=== PATIENT | female | born 1945 | race Caucasian/White ===

== ENCOUNTER 2025-02-14 12:26 | Emergency (ER) | payer MEDICARE, BC ==
[~2025-02-14] VITALS: Ht 160 cm; Wt 68.0 kg
[2025-02-14] MEDS ORDERED: ONDANSETRON HCL/PF 4 MG/2 ML VIAL ONE ×2 (12:56→14:57)
[2025-02-14] MEDS ORDERED: MAG HYDROX/AL HYDROX/SIMETH 30 ML UDC ONE (12:56)
[2025-02-14] MEDS ORDERED: LIDOCAINE VISCOUS 2% UD 15 ML UDC ONE (12:57)
[2025-02-14] MEDS ORDERED: FAMOTIDINE/PF INJ 20 MG/2 ML VIAL IV ONE (12:57)
[2025-02-14] MEDS: IV NS 0.9% 500 ML BAG IV ONE (13:00)
[2025-02-14] MEDS: MAG HYDROX/AL HYDROX/SIMETH 30 ML UDC PO ONE (13:00)
[2025-02-14] MEDS: LIDOCAINE VISCOUS 2% UD 15 ML UDC MM ONE (13:00)
[2025-02-14] MEDS: FAMOTIDINE/PF INJ 20 MG/2 ML VIAL IV ONE (13:00)
[2025-02-14] MEDS: ONDANSETRON HCL/PF 4 MG/2 ML VIAL IVP ONE (13:00)
[2025-02-14 13:01] LABS: BASOPHILS % (AUTO) 0.5 % (0.0-2.0); EOSINOPHILS % (AUTO) 0.1 % (0.0-6.0); HEMATOCRIT 39 % (33-45); HEMOGLOBIN 13.1 g/dL (11.5-14.8); LYMPHOCYTES # (AUTO) 1.1 K/uL (0.8-4.8); LYMPHOCYTES % (AUTO) 12.5 % (20.0-44.0); MEAN CORPUSCULAR HEMOGLOBIN 32 PG (26.0-33.0); MEAN CORPUSCULAR HGB CONC 34 g/dl (31.0-36.0); MEAN CORPUSCULAR VOLUME 93 fL (82-100); MONOCYTES # (AUTO) 0.4 K/uL (0.1-1.30); MONOCYTES % (AUTO) 4.9 % (2.0-12.0); NEUTROPHILS # (AUTO) 7.2 K/uL (1.8-8.9); PLATELET COUNT (AUTO) 185 K/uL (150-450); RED BLOOD CELL COUNT(AUTO) 4.15 MIL/uL (4.0-5.2); RED CELL DISTRIBUTION WIDTH 13.8 % (11.5-15.0); WHITE BLOOD COUNT (AUTO) 8.7 K/uL (4.3-11.0)
[2025-02-14 13:23] LABS: CALCIUM, SERUM 10.1 mg/dL (8.5-10.1); CARBON DIOXIDE 26 mmol/L (21-32); CHLORIDE 101 mmol/L (98-107); GLUCOSE 155 mg/dL (74-106); POTASSIUM 3.2 mmol/L (3.5-5.1); SODIUM SERUM 139 mmol/L (136-145); UREA NITROGEN, BLOOD 19 mg/dL (7-18)
[2025-02-14 13:30] LABS: ALANINE AMINOTRANSFERASE 23 U/L (12-78); ALBUMIN 4.3 g/dL (3.4-5.0); ALKALINE PHOSPHATASE 54 U/L (46-116); ASPARTATE AMINOTRANSFERASE 38 U/L (15-37); BILIRUBIN,DIRECT 0.1 mg/dL (0.0-0.2); BILIRUBIN,TOTAL 0.5 mg/dL (0.2-1.0); TOTAL PROTEIN, SERUM 8.6 g/dL (6.4-8.2)
[2025-02-14 13:45] LABS: INR 0.95 (0.91-1.10); PARTIAL THROMBOPLASTIN TIME 22.8 SEC (24.3-34.3); PROTHROMBIN TIME 10.1 SECS (9.2-11.1)
[2025-02-14] MEDS ORDERED: ASPIRIN 81 MG TAB.CHEW ONE (13:56)
[2025-02-14] MEDS ORDERED: hydrALAZINE HCL IV 20 MG VIAL ONE (13:56)
[2025-02-14] MEDS: ASPIRIN 81 MG TAB.CHEW PO ONE ×2 (14:10→14:14)
[2025-02-14] MEDS: ENOXAPARIN SODIUM 60 MG/0.6 ML DISP.SYRIN SQ ONE (14:10)
[2025-02-14] MEDS: hydrALAZINE HCL IV 20 MG VIAL IV ONE (14:10)
[2025-02-14] MEDS ORDERED: PANT40TA49 PO (14:18)
[2025-02-14] MEDS ORDERED: LEVO75CA2 PO (14:18)
[2025-02-14] MEDS ORDERED: FLUO40CA49 PO (14:18)
[2025-02-14] MEDS ORDERED: BIOT50002 PO (14:18)
[2025-02-14] MEDS ORDERED: MULT-465 PO (14:18)
[2025-02-14] MEDS ORDERED: ASCO1TAB13 PO (14:18)
[2025-02-14] MEDS ORDERED: CALC-36 PO (14:18)
[2025-02-14] MEDS ORDERED: CHOL200059 PO (14:18)
[2025-02-14] MEDS ORDERED: VALS80TA2 PO (14:18)
[2025-02-14] MEDS ORDERED: DOXA2TAB2 PO (14:18)
[2025-02-14] MEDS ORDERED: ALPR0.5T8 PO (14:18)
[2025-02-14] MEDS ORDERED: ROSU20TA32 PO (14:18)
[2025-02-14] MEDS ORDERED: MAGN400T52 PO (14:18)
[2025-02-14] MEDS ORDERED: MELA5TAB PO (14:18)
[2025-02-14] MEDS ORDERED: NITROGLYCERIN 0.4 MG/TAB BOTTLE ONE (14:25)
[2025-02-14] MEDS ORDERED: NITROGLYCERIN PACKET 1 GM PACKET ONE (14:26)
[2025-02-14] MEDS: NITROGLYCERIN 0.4 MG/TAB BOTTLE SL ONE (14:30)
[2025-02-14] MEDS: NITROGLYCERIN PACKET 1 GM PACKET TOP ONE (14:30)
[2025-02-14 14:55] LABS: APPEARANCE,URINE CLEAR (CLEAR); BILIRUBIN,URINE NEGATIVE (NEGATIVE); BLOOD, URINE TRACE-INTA Ery/uL (NEGATIVE); COLOR,URINE YELLOW (YELLOW); KETONES,URINE 1+ mg/dL (NEGATIVE); LEUKOCYTE ESTERASE ,URINE NEGATIVE (NEGATIVE); NITRITE, URINE NEGATIVE (NEGATIVE); PROTEIN,URINE TRACE mg/dl (NEGATIVE); UGLUCOSE NEGATIVE (NEGATIVE); UROBILINOGEN,URINE 0.2 EU/dL (0.2)
[2025-02-14] MEDS ORDERED: MORPHINE SULFATE INJ 2 MG/ML DISP.SYRIN ONE (14:57)
[2025-02-14] MEDS: MORPHINE SULFATE INJ 2 MG/ML DISP.SYRIN IV ONE (15:05)
[2025-02-14] MEDS: ONDANSETRON HCL/PF 4 MG/2 ML VIAL IV ONE (15:05)
[2025-02-14 15:17] LABS: ADD URINE CULTURE NO; BACTERIA,URINE Few /HPF (None Seen); SQUAMOUS EPITHELIAL CELL,UR 0-2 /HPF (None Seen); WBC,URINE 0-2 /HPF (0-3)
[2025-02-14 16:30] VITALS: TEMP 98.3
[2025-02-14 16:54] VITALS: BP 155/78; O2SAT 99
== END 2025-02-14 17:02 | disposition short-term general hospital (02) ==
LOC: ER 12:37
DX: I21.4 Non-ST elevation (NSTEMI) myocardial infarction (principal); R07.89 Other chest pain; R10.13 Epigastric pain; R11.2 Nausea with vomiting, unspecified; I10 Essential (primary) hypertension; E03.9 Hypothyroidism, unspecified; E78.5 Hyperlipidemia, unspecified; F32.A Depression, unspecified; F41.9 Anxiety disorder, unspecified; Z79.899 Other long term (current) drug therapy
CPT/HCPCS: 99291; 96372; 96374; 96375; 93005 ×2; 71045; 96376; 74176; 85025; 80048; 87040 ×2; 83605 ×2; 83690; 80076; 81001; 36415; 84484 ×2; 85730; 86850; J0360; J1308; J2405 ×2; J7040; J1650; J2270